=== PATIENT | female | born 1990 | race American Indian/Alaskan Native ===

== ENCOUNTER 2018-08-22 18:23 | Emergency (ER) | payer OTHER ==
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
[2018-08-22 20:57] LABS: HCG Qualitative,Urine Negative (Negative)
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
[2018-08-22] MEDS ORDERED: TORADOL IM ONE (23:11)
[2018-08-22] MEDS ORDERED: DELTASONE PO ONE (23:11)
[2018-08-22] MEDS ORDERED: FLEXERIL PO ONE (23:11)
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
[2018-08-23 01:54] LABS: Bilirubin,Urine Negative (Negative); Color,Urine Yellow (Yellow)
[2018-08-23 01:55] LABS: Blood,Urine Small (Negative); Mucus,Urine 3+ /HPF; Protein,Urine <15 mg/dL mg/dL (Negative)
[2018-08-24 18:14] VITALS: BP 130/94
== END 2018-08-23 03:31 | disposition home or self-care (01) ==
LOC: ED 18:23
DX: R25.2 Cramp and spasm (principal); F17.200 Nicotine dependence, unspecified, uncomplicated; V89.2XXA Person injured in unspecified motor-vehicle accident, traffic, initial encounter; Y93.89 Activity, other specified; Y92.488 Other paved roadways as the place of occurrence of the external cause; Y99.8 Other external cause status
CPT/HCPCS: 72040; 72100; 73140; 81001; 81025; 99283; J1885; J7512